=== PATIENT | female | born 1975 | race African-American/Black ===

== ENCOUNTER 2022-03-28 18:11 | Inpatient (IN) | payer BC ==
[~2022-03-28] VITALS: Ht 160 cm; Wt 39.5 kg
[2022-03-28 18:25] VITALS: BP_SYST 118
[2022-03-28] MEDS ORDERED: NACL 0.9% 1,000 ML IV ONE (19:15)
[2022-03-28 19:39] LABS: RED CELL DISTRIBUTION WIDTH 14.5 % (9.0-15.0)
[2022-03-28 19:44] LABS: BASOPHILS % (AUTO) 0.1 % (0.0-2.0); HEMATOCRIT 41.9 % (36-48); HEMOGLOBIN 14.9 g/dL (12.0-16.0); LYMPHOCYTES # (AUTO) 0.4 K/uL (1.0-5.5); LYMPHOCYTES % (AUTO) 2.7 % (20.5-51.5); MEAN CORPUSCULAR HEMOGLOBIN 34 pg (27-31); MEAN CORPUSCULAR HGB CONC 36 % (32-36); MEAN CORPUSCULAR VOLUME 95 fL (79.0-98.0); MONOCYTES # (AUTO) 0.8 K/uL (0.0-1.0); MONOCYTES % (AUTO) 6.1 % (1.7-9.3); NEUTROPHILS # (AUTO) 12.2 K/uL (1.8-7.7); NEUTROPHILS % (AUTO) 91.1 % (40.0-70.0); PLATELET COUNT (AUTO) 229 K/uL (130-430); RED BLOOD CELL COUNT(AUTO) 4.41 MIL/uL (4.2-6.2); WHITE BLOOD COUNT (AUTO) 13.4 K/uL (4.8-10.8)
[2022-03-28 19:48] LABS: CREATININE 0.5 mg/dL (0.55-1.30); POTASSIUM 3.2 mmol/L (3.5-5.1)
[2022-03-28 20:03] LABS: ALBUMIN 3.1 g/dL (3.4-4.8); FREE T4 (FREE THYROXINE) 1.1 ng/dl (0.8-1.5); PHOSPHORUS 2.9 mg/dL (2.7-4.5); THYROID STIMULATING HORMONE 0.63 uIu/mL (0.36-3.74); TOTAL BILIRUBIN 3.7 mg/dL (0.0-1.0)
[2022-03-28 21:49] LABS: BILIRUBIN,URINE NEGATIVE (NEGATIVE); BLOOD, URINE NEGATIVE (NEGATIVE); CLARITY/URINE CLEAR (CLEAR); COLOR,URINE YELLOW (YELLOW); GLUCOSE,URINE NEGATIVE (NEGATIVE); KETONES,URINE 1+ (NEGATIVE); LEUKOCYTE ESTERASE ,URINE NEGATIVE (NEGATIVE); NITRITE, URINE NEGATIVE (NEGATIVE); PH,URINE 7.5 (5.0-8.0); PROTEIN URINE NEGATIVE (NEGATIVE)
[2022-03-28 23:09] VITALS: BP_SYST 128
[2022-03-28] MEDS: D5/0.45 NS 1,000 ML IV SCH (23:35)
[2022-03-29 08:19] VITALS: BP_SYST 117
[2022-03-29] MEDS: D5/0.45 NS 1,000 ML IV SCH ×3 (11:00→23:14)
[2022-03-29 11:18] LABS: BASOPHILS % (AUTO) 0.1 % (0.0-2.0); HEMATOCRIT 42.8 % (36-48); HEMOGLOBIN 14.9 g/dL (12.0-16.0); LYMPHOCYTES # (AUTO) 0.4 K/uL (1.0-5.5); LYMPHOCYTES % (AUTO) 3.3 % (20.5-51.5); MEAN CORPUSCULAR HEMOGLOBIN 33 pg (27-31); MEAN CORPUSCULAR HGB CONC 35 % (32-36); MEAN CORPUSCULAR VOLUME 95 fL (79.0-98.0); MONOCYTES % (AUTO) 8.3 % (1.7-9.3); NEUTROPHILS % (AUTO) 88.3 % (40.0-70.0); PLATELET COUNT (AUTO) 239 K/uL (130-430); RED CELL DISTRIBUTION WIDTH 14.8 % (9.0-15.0); WHITE BLOOD COUNT (AUTO) 12.4 K/uL (4.8-10.8)
[2022-03-29 11:32] LABS: CALCIUM 8.1 mg/dL (8.4-11.0); CREATININE 0.57 mg/dL (0.55-1.30); TOTAL BILIRUBIN 3.8 mg/dL (0.0-1.0)
[2022-03-29 11:35] LABS: POTASSIUM 2.7 mmol/L (3.5-5.1)
[2022-03-29] MEDS ORDERED: POTASSIUM CHLORIDE 40 MEQ, LIDOCAINE JECT 2% PF 100 MG 50 MG in NS 250 ML IV ONE (13:00)
[2022-03-29 16:16] VITALS: BP_SYST 128
[2022-03-29 18:47] VITALS: BP_SYST 130
[2022-03-29 20:00] VITALS: BP_SYST 119
[2022-03-30 03:41] VITALS: BP_SYST 118
[2022-03-30 07:22] LABS: BASOPHILS % (AUTO) 0.2 % (0.0-2.0); HEMATOCRIT 39.5 % (36-48); HEMOGLOBIN 13.9 g/dL (12.0-16.0); LYMPHOCYTES # (AUTO) 0.3 K/uL (1.0-5.5); LYMPHOCYTES % (AUTO) 2.5 % (20.5-51.5); MEAN CORPUSCULAR HEMOGLOBIN 33 pg (27-31); MEAN CORPUSCULAR HGB CONC 35 % (32-36); MEAN CORPUSCULAR VOLUME 95 fL (79.0-98.0); MONOCYTES # (AUTO) 0.7 K/uL (0.0-1.0); MONOCYTES % (AUTO) 6.5 % (1.7-9.3); NEUTROPHILS # (AUTO) 10.3 K/uL (1.8-7.7); NEUTROPHILS % (AUTO) 90.8 % (40.0-70.0); PLATELET COUNT (AUTO) 188 K/uL (130-430); RED BLOOD CELL COUNT(AUTO) 4.14 MIL/uL (4.2-6.2); RED CELL DISTRIBUTION WIDTH 14.8 % (9.0-15.0); WHITE BLOOD COUNT (AUTO) 11.3 K/uL (4.8-10.8)
[2022-03-30 07:35] LABS: ALBUMIN 2.7 g/dL (3.4-4.8); C-REACTIVE PROTEIN QUANT 0.6 mg/dL (0-0.5); CALCIUM 7.8 mg/dL (8.4-11.0); CREATININE 0.31 mg/dL (0.55-1.30); POTASSIUM 3.1 mmol/L (3.5-5.1); TOTAL BILIRUBIN 3.3 mg/dL (0.0-1.0)
[2022-03-30 07:59] VITALS: BP_SYST 135
[2022-03-30 11:46] VITALS: BP_SYST 122
[2022-03-30 11:54] LABS: ERYTHROCYTE SEDIMENTATION RATE 3 MM/HR (0-20)
[2022-03-30] MEDS: D5/0.45 NS 1,000 ML IV SCH (14:55)
[2022-03-30 16:25] VITALS: BP_SYST 134
[2022-03-30] MEDS ORDERED: POTASSIUM CHLORIDE 20 MEQ TAB.PRT.SR PO ONE (17:45)
[2022-03-31] MEDS: D5/0.45 NS 1,000 ML IV SCH ×2 (03:48→09:30)
[2022-03-31 08:16] LABS: ALBUMIN 2.7 g/dL (3.4-4.8); BASOPHILS % (AUTO) 0.3 % (0.0-2.0); CALCIUM 8.2 mg/dL (8.4-11.0); CREATININE 0.31 mg/dL (0.55-1.30); HEMATOCRIT 39.8 % (36-48); HEMOGLOBIN 13.7 g/dL (12.0-16.0); LYMPHOCYTES # (AUTO) 0.2 K/uL (1.0-5.5); LYMPHOCYTES % (AUTO) 1.5 % (20.5-51.5); MEAN CORPUSCULAR HEMOGLOBIN 33 pg (27-31); MEAN CORPUSCULAR HGB CONC 34 % (32-36); MONOCYTES # (AUTO) 0.7 K/uL (0.0-1.0); NEUTROPHILS # (AUTO) 12.6 K/uL (1.8-7.7); NEUTROPHILS % (AUTO) 93.2 % (40.0-70.0); PLATELET COUNT (AUTO) 186 K/uL (130-430); POTASSIUM 3.6 mmol/L (3.5-5.1); RED BLOOD CELL COUNT(AUTO) 4.12 MIL/uL (4.2-6.2); RED CELL DISTRIBUTION WIDTH 15.3 % (9.0-15.0); TOTAL BILIRUBIN 3.7 mg/dL (0.0-1.0); WHITE BLOOD COUNT (AUTO) 13.5 K/uL (4.8-10.8)
[2022-03-31 09:16] LABS: MEAN CORPUSCULAR VOLUME 97 fL (79.0-98.0)
[2022-03-31 12:00] VITALS: BP_SYST 126
[2022-03-31 16:00] VITALS: BP_SYST 125
[2022-03-31 18:00] VITALS: BP_SYST 139
== END 2022-03-31 18:42 | disposition home or self-care (01) | DRG 441 ==
LOC: SED 18:11 → SMU 21:29
PROVIDERS: ADMIT Preventive Medicine Preventive Medicine/Occupational Environmental Medicine; ATTEND Preventive Medicine Preventive Medicine/Occupational Environmental Medicine
DX: K76.9 Liver disease, unspecified (principal); E43 Unspecified severe protein-calorie malnutrition; E87.1 Hypo-osmolality and hyponatremia; Z68.1 Body mass index [BMI] 19.9 or less, adult; E87.6 Hypokalemia; R73.9 Hyperglycemia, unspecified; Z20.822 Contact with and (suspected) exposure to COVID-19; E83.52 Hypercalcemia; D72.829 Elevated white blood cell count, unspecified; C80.1 Malignant (primary) neoplasm, unspecified; E83.41 Hypermagnesemia; R74.01 Elevation of levels of liver transaminase levels; E88.09 Other disorders of plasma-protein metabolism, not elsewhere classified; E83.42 Hypomagnesemia; Z90.710 Acquired absence of both cervix and uterus; Z85.41 Personal history of malignant neoplasm of cervix uteri; Z90.722 Acquired absence of ovaries, bilateral
CPT/HCPCS: 36415; 76376; 76700-TC; 76857; 80053; 81003; 82105; 82150; 83690; 83735; 84100; 84439; 84443; 85025; 85651-TC; 86140; 86304; 87040; 87086; 96360; 99285; J3480; J7030; J7050; Q9967